=== PATIENT | female | born 1995 | race Caucasian/White ===

== ENCOUNTER 2017-05-18 02:22 | Day surgery (SDC) | payer BC, OTHER ==
--- NOTE | 2017-05-18 03:17 | PDOC ---
History of Present Illness - General Stated Complaint: ABDOMINAL PAIN Time Seen by Provider: 05/18/17 02:28 History Source: Patient Exam Limitations: No Limitations - History of Present Illness Travel History: No Initial Comments: 05/18/17 03:16 22-year-old female with no medical history presents to the emergency department with her mother complaining of epigastric/right upper quadrant abdominal discomfort. Pain is described as 8/10 dull nonradiating intermittent discomfort. The pain is exacerbated after eating and there are no alleviating factors. Patient states for the past 2 weeks, she is been experiencing right upper quadrant discomfort about 20 minutes after eating. This evening, patient states the pain has increased after having dinner at approximately 1930 hrs. Patient felt nauseous and had 2 bouts of vomiting, nonbloody/nonbilious 30 minutes ago. Patient denies fever, chills, neck pain/stiffness, chest pain, shortness of breath, flank pains, urinary symptoms. Timing/Duration: reports: intermittent Abdominal Pain Onset Location: reports: RUQ, epigastric Past History - Past Medical History Allergies/Adverse Reactions: Allergies Allergy/AdvReac Type Severity Reaction Status Date / Time abraham Allergy Mild Hives Verified 05/18/17 17:15 Home Medications: Ambulatory Orders Norethindrone AC-Eth Estradiol [Loestrin 21 1-20 Tablet] 1 each PO DAILY Review of Systems - Review of Systems Able to Perform ROS?: Yes Comments:: 05/18/17 03:15 CONSTITUTIONAL: Absent: fever, chills, diaphoresis, generalized weakness, malaise, loss of appetite HEENT: Absent: rhinorrhea, nasal congestion, throat pain, throat swelling, difficulty swallowing, mouth swelling, ear pain, eye pain, visual Changes CARDIOVASCULAR: Absent: chest pain, loss of consciousness, palpitations, irregular heart rate, peripheral edema RESPIRATORY: Absent: cough, shortness of breath, dyspnea with exertion, orthopnea, wheezing, stridor, hemoptysis GASTROINTESTINAL: +RUQ pain Absent: abdominal distension, nausea, vomiting, diarrhea, constipation, melena , hematochezia GENITOURINARY: Absent: dysuria, frequency, urgency, hesitancy, hematuria, flank pain, genital pain MUSCULOSKELETAL: Absent: myalgia, arthralgia, joint swelling SKIN: Absent: rash, itching, pallor HEMATOLOGIC/IMMUNOLOGIC: Absent: easy bleeding, easy bruising, lymphadenopathy, frequent infections ENDOCRINE: Absent: unexplained weight gain, unexplained weight loss, heat intolerance, cold intolerance Is the patient limited Setswana proficient: No *Physical Exam - Physical Exam Comments: 05/18/17 03:15 GENERAL: Well developed, well nourished. Awake and alert. No acute distress. HEENT: Normocephalic, atraumatic. PERRLA, EOMI. No conjunctival pallor. Sclera are non- icteric. Moist mucous membranes. Oropharynx is clear. NECK: Supple. Full ROM. No JVD. Carotid pulses 2+ and symmetric, without bruits. No thyromegaly. No lymphadenopathy. CARDIOVASCULAR: Regular rate and rhythm. No murmurs, rubs, or gallops. Distal pulses are 2+ and symmetric. PULMONARY: No evidence of respiratory distress. Lungs clear to auscultation bilaterally. No wheezing, rales or rhonchi. ABDOMINAL: +RUQ pain/Epigastric pain on palp Soft. Non-distended. No rebound or guarding. No organomegaly. Normoactive bowel sounds. MUSCULOSKELETAL Normal range of motion at all joints. No bony deformities or tenderness. No CVA tenderness. EXTREMITIES: No cyanosis. No clubbing. No edema. No calf tenderness. SKIN: Warm and dry. Normal capillary refill. No rashes. No jaundice. ED Treatment Course - LABORATORY CBC & Chemistry Diagram: 05/18/17 03:17 05/18/17 03:17 - RADIOLOGY Radiograph Interpretation: 05/18/17 05:29 Ct abd /pelvis w/iv contrast: Gallbladder distention and mild biliary duct dilation without gallbladder inflammation. Mild splenomegaly. Evaluated with US when warranted Progress Note - Progress Note Progress Note: [id number]: Sign out to MIRELLA Edmondson *DC/Admit/Observation/Transfer Diagnosis at time of Disposition: Abdominal pain Qualifiers: Abdominal location: right upper quadrant Qualified Code(s): R10.11 - Right upper quadrant pain - Discharge Dispostion Condition at time of disposition: Stable - Referrals - Patient Instructions - Post Discharge Activity
[2017-05-18 03:42] LABS: BASO % 0.4 % (0-2.0); EOS % 0.2 % (0-4.5); HEMATOCRIT 43.9 % (32.4-45.2); LYMPH % 6.5 % (8-40); MCH 30.2 pg (25.7-33.7); MCHC 34.2 g/dl (32.0-36.0); MEAN CELL VOLUME 88.4 fl (80-96); MEAN PLT VOLUME 8.6 fl (7.5-11.1); MONO % 2.5 % (3.8-10.2); NEUT % 90.4 % (42.8-82.8); PLATELET COUNT 261 K/MM3 (134-434); RBC 4.97 M/mm3 (3.60-5.2); RDW 12.9 % (11.6-15.6); WHITE BLOOD COUNT 15.1 K/mm3 (4.0-10.0)
[2017-05-18] MEDS: SODIUM CHLORIDE 1,000 ML IV SCH ×2 (03:42→16:28)
[2017-05-18] MEDS ORDERED: morphine CARPU-JECT 2 MG/1 ML DISP.SYRIN IVPUSH ONE ×2 (03:43→07:28)
[2017-05-18] MEDS ORDERED: FAMOTIDINE IV 20 MG/12 ML VIAL IVPB ONE (03:43)
[2017-05-18 03:44] LABS: URINE APPEARANCE CLOUDY; URINE BILIRUBIN NEGATIVE (NEGATIVE); URINE BLOOD NEGATIVE (NEGATIVE); URINE COLOR YELLOW; URINE GLUCOSE (UA) NEGATIVE (NEGATIVE); URINE KETONE TRACE (NEGATIVE); URINE LEUK ESTERASE TRACE (NEGATIVE); URINE NITRITE NEGATIVE (NEGATIVE); URINE PROTEIN NEGATIVE (NEGATIVE); URINE UROBILINOGEN NEGATIVE mg/dL (0.2-1.0)
[2017-05-18 03:56] LABS: EPI CELLS RARE /HPF (FEW); HCG,QUALITATIVE URINE NEGATIVE; URINE BACTERIA MODERATE /hpf (NONE SEEN); URINE MUCUS RARE
[2017-05-18] MEDS ORDERED: morphine CARPU-JECT 10 MG/1 ML DISP.SYRIN ONE (04:01)
[2017-05-18] MEDS ORDERED: FAMOTIDINE 20 MG/50 ML IVPB 20 MG/50 ML MG IVPB ONE (04:01)
[2017-05-18] MEDS ORDERED: ONDANSETRON 4 MG/2 ML VIAL IVPUSH ONE ×2 (04:05→07:35)
[2017-05-18] MEDS ORDERED: ONDANSETRON 4 MG/2 ML VIAL ONE (04:05)
[2017-05-18 04:12] LABS: ALBUMIN 4.3 g/dl (3.4-5.0); AMYLASE 58 U/L (25-115); ANION GAP 12 (8-16); BLOOD UREA NITROGEN 12 mg/dL (7-18); CALCIUM 9.9 mg/dL (8.5-10.1); CHLORIDE 99 mmol/L (98-107); CO2 25 mmol/L (21-32); CREATININE 0.9 mg/dL (0.55-1.02); GLUCOSE,RANDOM 116 mg/dL (74-106); LIPASE 104 U/L (73-393); SGPT/ALT 23 U/L (12-78); SODIUM 136 mmol/L (136-145); TOT PROT 7.2 g/dl (6.4-8.2)
[2017-05-18 04:13] LABS: ALK PHOS 50 U/L (45-117); POTASSIUM 4.5 mmol/L (3.5-5.1); SGOT/AST 19 U/L (15-37)
--- NOTE | 2017-05-18 07:27 | PDOC ---
*Physical Exam - Vital Signs Last Vital Signs Temp Pulse Resp BP Pulse Ox 98.0 F 68 20 122/68 99 05/18/17 03:19 05/18/17 06:56 05/18/17 06:56 05/18/17 06:56 05/18/17 06:56 ED Treatment Course - LABORATORY CBC & Chemistry Diagram: 05/18/17 03:17 05/18/17 03:17 - ADDITIONAL ORDERS Additional order review: Laboratory Results 05/18/17 05/18/17 03:17 03:17 Sodium 136 Potassium 4.5 Chloride 99 Carbon Dioxide 25 Anion Gap 12 BUN 12 D Creatinine 0.9 D Creat Clearance w eGFR > 60 Random Glucose 116 H D Calcium 9.9 Total Bilirubin 1.0 AST 19 D ALT 23 Alkaline Phosphatase 50 D Total Protein 7.2 Albumin 4.3 Total Amylase 58 Lipase 104 Urine Color Yellow Urine Appearance Cloudy Urine pH 6.0 Ur Specific [place] 1.023 Urine Protein Negative Urine Glucose (UA) Negative Urine Ketones Trace H Urine Blood Negative Urine Nitrite Negative Urine Bilirubin Negative Urine Urobilinogen Negative Urine WBC (Auto) 3 Urine RBC (Auto) 1 Ur Epithelial Cells Rare Urine Bacteria Moderate Urine Mucus Rare Urine HCG, Qual Negative 05/18/17 03:17 RBC 4.97 MCV 88.4 MCHC 34.2 RDW 12.9 D MPV 8.6 Neutrophils % 90.4 H Lymphocytes % 6.5 L Monocytes % 2.5 L Eosinophils % 0.2 Basophils % 0.4 - Medications Given in the ED: ED Medications Discontinued Medications Generic Name Dose Route Start Last Admin Trade Name Freq PRN Reason Stop Dose Admin Famotidine 20 mg in 12 mls @ 144 mls/hr 05/18/17 03:43 05/18/17 04:09 Pepcid 20 Mg/12 Ml Push IVPB 05/18/17 03:47 144 mls/hr ONCE ONE Administration Morphine Sulfate 2 mg 05/18/17 03:43 05/18/17 04:09 Morphine Injection - IVPUSH 05/18/17 03:44 2 mg ONCE ONE Administration Ondansetron HCl 4 mg 05/18/17 04:05 05/18/17 04:09 Zofran Injection IVPUSH 05/18/17 04:06 4 mg ONCE ONE Administration Medical Decision Making - Medical Decision Making 05/18/17 09:54 Sign out received from, 0700 hours. Patient is a 22-year-old female with no past medical history who presents with right upper quadrant pain. CT abdomen shows mildly distended gallbladder with mild wall thickening. Cannot rule out cholecystitis waiting for ultrasound read. WBCs elevated at 15. Pt. naueous at this time. Zofran ordered. PCP: Dr. Salazar [phone] Preferred surgeon: Dr. Fischer. 05/18/17 09:56 *DC/Admit/Observation/Transfer Diagnosis at time of Disposition: Abdominal pain Qualifiers: Abdominal location: right upper quadrant Qualified Code(s): R10.11 - Right upper quadrant pain - Discharge Dispostion Condition at time of disposition: Stable Admit: Yes - Referrals - Patient Instructions - Post Discharge Activity
[2017-05-18] MEDS ORDERED: LEVOFLOXACIN 500 MG IVPB 500 MG/100 ML BAG IVPB ONE ×2 (10:10→10:32)
[2017-05-18] MEDS ORDERED: LEVOFLOXACIN 750 MG IVPB 750 MG/150 ML BAG IVPB ONE (10:19)
--- NOTE | 2017-05-18 15:10 | PN ---
Progress Note (short form) - Note Progress Note: ID Consult dictated Acute cholecystitis Leukocytosis, possible biliary sepsis Await cultures GI/Surgical evaluations Empiric ceftriaxone/ flagyl
--- NOTE | 2017-05-18 15:44 | CONS ---
DATE OF CONSULTATION: DATE OF DICTATION: 05/18/2017 INFECTIOUS DISEASE CONSULTATION HISTORY OF PRESENT ILLNESS: The patient is a 22-year-old previously healthy female, evaluated for acute cholecystitis. The patient reports developing recurrent epigastric and right upper quadrant abdominal pain. She had had episodes in the past. However, last night, after eating a meal, she developed increased pain in the right upper quadrant, associated with nausea and vomiting. She denied any fever or chills. She presented to the emergency room early this morning, where a CAT scan revealed a distended gallbladder with mild biliary duct dilatation. No inflammation of the gallbladder of pancreas was noted. The common bile duct was not significantly dilated. An ultrasound showed a prominent mucosal fold at the gallbladder neck and cystic duct, consistent with spiral valves of Heister. The gallbladder was slightly distended, without wall thickening or intraluminal stones. No pericholecystic fluid was noted. Her laboratory data showed white count of 15,000. Blood cultures were obtained, and she was empirically treated with Levaquin. At the present time she has no complaints of abdominal pain. She is hungry. Denies recurrent nausea or vomiting. PAST MEDICAL HISTORY: Negative. ALLERGIES: No known allergies. SOCIAL HISTORY: Negative for tobacco, alcohol or illicit drugs. REVIEW OF SYSTEMS: Neurologic: No loss of consciousness, seizure activity, focal weakness. Cardiac: Negative for chest pain or palpitations. Respiratory: Negative for cough or sputum production. Gastrointestinal: As per HPI. Genitourinary: Negative for urinary tract infection. LABORATORY DATA: White count 15.1, hematocrit 43.9, platelet count 261. BUN 12, creatinine 0.9. Liver enzymes normal. Urinalysis: 3 white cells. Amylase 58, lipase 104. Blood cultures are pending. Urine test negative. PHYSICAL EXAMINATION: General: She is awake and alert. She is not acute toxic appearing. Vital Signs: Temperature 98.6, blood pressure 109/65, pulse 81 and regular, respirations 18 per minute. HEENT: Sclerae anicteric. Cardiac: Heart sounds S1, S2. Lungs: Clear. Abdomen: Slight right upper quadrant and epigastric tenderness to palpation. Negative Sorenson sign. Extremities: Negative for edema. IMPRESSION: 1. Probable acute cholecystitis. 2. Leukocytosis, rule out biliary sepsis. PLAN: Await culture results. Surgical and GI evaluations. Empiric antibiotic coverage for biliary tract pathogens with ceftriaxone 2 g IV pyelogram daily and Flagyl 500 mg IV piggyback every 8 hours. The patient is to undergo a HIDA scan. Case discussed with the patient's father. We will follow. Thank you for the kind referral. KILEY GABRIEL M.D. ANTHONY/[id number]
[2017-05-18] MEDS: METRONIDAZOLE 500 MG PREMIXED 500 MG/100 ML MG IVPB SCH ×2 (16:28→17:56)
[2017-05-18 17:14] VITALS: BMI 20.5
--- NOTE | 2017-05-18 17:27 | CON.GI ---
Consult Consult Specialty:: GI Referred by:: Dr Raghav Shaw - History of Present Illness Chief Complaint: RUQ pain History of Present Illness: 22 y/ Female was doing well util 3 weeks she developed mild ruq pain which became worse last evening. The pain was 10/10/ associated with nausea and vomiting. Since last night she could sleep because of the abdominal pain. Abdomnal ultrasound revealed a dilated Gallbladder with no stones associated with normal CBD. The HIDA scan requested revealed non-visualization of the gallbladder consistent with cholecystitis. This evening the ruq pain has subsided. - Past Medical History ...LMP: 04/21/17 ...: No - Alcohol/Substance Use Hx Alcohol Use: Yes (socially) - Smoking History Smoking history: Never smoked Have you smoked in the past 12 months: No Home Medications - Allergies Allergies/Adverse Reactions: Allergies Allergy/AdvReac Type Severity Reaction Status Date / Time abraham Allergy Mild Hives Verified 05/18/17 17:15 - Home Medications Home Medications: Ambulatory Orders Norethindrone AC-Eth Estradiol [Loestrin 21 1-20 Tablet] 1 each PO DAILY Review of Systems - Review of Systems Constitutional: denies: No Symptoms, Chills, Diaphoresis, Fever, Lethargy, Loss of Appetite, Malaise, Night Sweats, Unintentional Wgt. Loss, Weakness, Other Eyes: denies: No Symptoms, Blind Spots, Blurred Vision, Double Vision, Eye Pain , Floaters, Photophobia, Recent Change in Vision, Other HENT: denies: No Symptoms, Difficult Swallowing, Ear Discharge, Ear Pain, Epistaxis, Gingival Bleeding, Hearing Loss, Mouth Swelling, Nasal Congestion, Ocular Prosthesis, Throat Pain, Toothache, Ringing in Ears, Other Cardiovascular: denies: No Symptoms, Chest Pain, Edema, Palpitations, Shortness of Breath, Other Respiratory: denies: No Symptoms, Cough, Exercise Intolerance, Hemoptysis, Orthopnea, PND, Snoring, SOB, SOB on Exertion, Wheezing, Other Gastrointestinal: reports: Abdominal Pain (--ruq) Physical Exam-GI Vital Signs: Vital Signs Temperature 97.9 F 05/18/17 16:57 Pulse Rate 82 05/18/17 16:57 Respiratory Rate 18 05/18/17 16:57 Blood Pressure 102/70 05/18/17 16:57 O2 Sat by Pulse Oximetry (%) 99 05/18/17 16:57 Constitutional: Yes: Well Nourished Eyes: Yes: Conjunctiva Clear HENT: Yes: Atraumatic Neck: Yes: Trachea Midline Cardiovascular: Yes: Regular Rate and Rhythm Respiratory: Yes: CTA Bilaterally ...Palpate: Yes: Mass, Soft, Tenderness (--ruq tendernes). No: Firm/Rigid, Guarding, Hepatomegaly, Splenomegaly Labs: CBC, BMP 05/18/17 03:17 05/18/17 03:17 Hepatic Panel Total Bilirubin 1.0 mg/dL (0.2-1.0) 05/18/17 03:17 AST 19 U/L (15-37) D 05/18/17 03:17 ALT 23 U/L (12-78) 05/18/17 03:17 Alkaline Phosphatase 50 U/L (45-117) D 05/18/17 03:17 Albumin 4.3 g/dl (3.4-5.0) 05/18/17 03:17 Problem List - Problems (1) Acute cholecystitis Assessment/Plan: R> continue IV Antibiotics and IV hydration discussed case with Dr Shaw and Marck, will need cholecystectomy Code(s): K81.0 - ACUTE CHOLECYSTITIS
[2017-05-18] MEDS ORDERED: ONDANSETRON 4 MG/2 ML VIAL IVPB SCH (18:00)
[2017-05-18] MEDS ORDERED: METOCLOPRAMIDE HCL INJECTION 10 MG/2 ML VIAL IVPB SCH ×2 (18:00)
[2017-05-18] MEDS: CEFTRIAXONE IN IS-OSM DEXTROSE 2 GM/50 ML BAG IVPB SCH (18:07)
--- NOTE | 2017-05-18 18:16 | HP ---
Admitting History and Physical - Primary Care Physician PCP: Raghav Muniz D - Admission Chief Complaint: Abdominal pain History of Present Illness: 22 y/o who for the past couple of weeks has been getting upper abdominal usually after dinner, but last one week noted pain almost daily after dinner and would continue till she went to bed.Last night after dinner she developed pain and vomited about three times and then upper abdominal pain became very severe 10 and came to the ED . A [place] [id number]. US showed dilated GB a slight dilatation of intrahepatic ducts. She had a Hida scan this afternoon which did not show any obstruction.GB did not visualize Her LFTs have been normal. She was started on IV Levaquin , IV Famotidine and was given MS IV for pain control. At present she doesn't have any pain. 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[place]) Home Medications - Allergies Allergies/Adverse Reactions: Allergies Allergy/AdvReac Type Severity Reaction Status Date / Time abraham Allergy Mild Hives Verified 05/18/17 17:15 - Home Medications Home Medications: Ambulatory Orders Norethindrone AC-Eth Estradiol [Loestrin 21 1-20 Tablet] 1 each PO DAILY Review of Systems - Review of Systems Constitutional: reports: No Symptoms HENT: reports: No Symptoms Neck: reports: No Symptoms Cardiovascular: reports: No Symptoms Respiratory: reports: No Symptoms Gastrointestinal: reports: Abdominal Pain Genitourinary: reports: No Symptoms Breasts: reports: No Symptoms Reported Musculoskeletal: reports: No Symptoms Integumentary: reports: No Symptoms Neurological: reports: No Symptoms Endocrine: reports: No Symptoms Hematology/Lymphatic: reports: No Symptoms Psychiatric: reports: No Symptoms Physical Examination Vital Signs: Vital Signs Temperature 97.9 F 05/18/17 16:57 Pulse Rate 82 05/18/17 16:57 Respiratory Rate 18 05/18/17 16:57 Blood Pressure 102/70 12/28/17 16:57 O2 Sat by Pulse Oximetry (%) 99 05/18/17 16:57 Constitutional: Yes: Well Nourished, No Distress, Calm Eyes: Yes: Conjunctiva Clear, EOM Intact HENT: Yes: WNL Neck: Yes: Supple Cardiovascular: Yes: Regular Rate and Rhythm, S1, S2 Respiratory: Yes: WNL, CTA Bilaterally Gastrointestinal: Yes: Tenderness, Tenderness, Epigastrium, Other (severe tenderness in the RUQ, and epigastric region, no distention) Renal/: Yes: WNL Breast(s): Yes: WNL Musculoskeletal: Yes: WNL Extremities: Yes: WNL Edema: No Peripheral Pulses WNL: Yes Integumentary: Yes: WNL Neurological: Yes: Alert, Oriented ...Motor Strength: WNL Psychiatric: Yes: WNL Labs: CBC, BMP 05/18/17 03:17 05/18/17 03:17 Imaging - Results Cat Scan: Report Reviewed Ultrasound: Report Reviewed Other: Report Reviewed (Hida scan reviewed) Problem List - Problems (1) Acute cholecystitis Assessment/Plan: She is presently on IV Rocephin and IV Flagyl and continues to be very tender in the right upper quadrant. Surgical opinion from Code(s): K81.0 - ACUTE CHOLECYSTITIS Assessment/Plan Continue IV antibiotics as recommended by ,ID. Await 's surgical opinion.
[2017-05-18] MEDS: DEXTROSE 5%-0.45% SALINE 1,000 ML IV SCH (20:22)
[2017-05-18] MEDS: PANTOPRAZOLE SODIUM 40 MG VIAL IVPUSH SCH (20:24)
[2017-05-18] MEDS ORDERED: ACETAMINOPHEN 325 MG TABLET (FP) PO ONE (22:00)
[2017-05-19] MEDS: ONDANSETRON 4 MG/2 ML VIAL IVPUSH SCH ×6 (01:41→22:00)
[2017-05-19] MEDS: METRONIDAZOLE 500 MG PREMIXED 500 MG/100 ML MG IVPB SCH ×2 (01:41→10:24)
[2017-05-19] MEDS: METOCLOPRAMIDE HCL INJECTION 10 MG/2 ML VIAL IVPUSH SCH ×2 (01:45→10:28)
--- NOTE | 2017-05-19 08:45 | CONSULT ---
Consult Consult Specialty:: surgery - History of Present Illness History of Present Illness: 22 y/ Female was doing well util 3 weeks she developed mild ruq pain which became worse last evening. The pain was 10/10/ associated with nausea and vomiting. Since last night she could sleep because of the abdominal pain. Abdomnal ultrasound revealed a dilated Gallbladder with no stones associated with normal CBD. The HIDA scan requested revealed non-visualization of the gallbladder consistent with cholecystitis. This evening the ruq pain has subsided. - Past Medical History ...LMP: 04/21/17 ...: No - Alcohol/Substance Use Hx Alcohol Use: Yes (socially) History of Substance Use: reports: None - Smoking History Smoking history: Never smoked Have you smoked in the past 12 months: No Home Medications - Allergies Allergies/Adverse Reactions: Allergies Allergy/AdvReac Type Severity Reaction Status Date / Time abraham Allergy Mild Hives Verified 05/18/17 17:15 - Home Medications Home Medications: Ambulatory Orders Norethindrone AC-Eth Estradiol [Loestrin 21 1-20 Tablet] 1 each PO DAILY Physical Exam Vital Signs: Vital Signs Temperature 97.8 F 05/19/17 08:00 Pulse Rate 75 05/19/17 08:00 Respiratory Rate 18 05/19/17 08:00 Blood Pressure 123/75 05/19/17 08:00 O2 Sat by Pulse Oximetry (%) 99 05/18/17 21:00 Labs: CBC, BMP 05/18/17 03:17 05/18/17 03:17 Imaging - Results Cat Scan: Report Reviewed, Image Reviewed Ultrasound: Report Reviewed, Image Reviewed Other: Report Reviewed, Image Reviewed (acute cholecystitis) Assessment/Plan Acute Cholecystitis plan for OR today for Lap shahrzad
[2017-05-19 09:19] LABS: INR 1.21 (0.82-1.09); PROTHROMBIN TIME (PATIENT) 13.7 SEC (9.98-11.88)
[2017-05-19 09:34] LABS: ALBUMIN 3.4 g/dl (3.4-5.0)
[2017-05-19 09:39] LABS: BILIRUBIN,DIRECT 0.3 mg/dL (0.0-0.2); BILIRUBIN,TOTAL 1.1 mg/dL (0.2-1.0)
[2017-05-19 09:59] LABS: BASO % 0.5 % (0-2.0); EOS % 2.5 % (0-4.5); HEMATOCRIT 42.1 % (32.4-45.2); HEMOGLOBIN 14.4 GM/dL (10.7-15.3); MCH 30.3 pg (25.7-33.7); MCHC 34.3 g/dl (32.0-36.0); MEAN CELL VOLUME 88.3 fl (80-96); MEAN PLT VOLUME 8.7 fl (7.5-11.1); MONO % 7.5 % (3.8-10.2); NEUT % 64.5 % (42.8-82.8); PLATELET COUNT 205 K/MM3 (134-434); RBC 4.77 M/mm3 (3.60-5.2); RDW 12.6 % (11.6-15.6); WHITE BLOOD COUNT 6.1 K/mm3 (4.0-10.0)
[2017-05-19] MEDS ORDERED: PT OWN MED DRAWER 7, Y5N ONE (10:17)
[2017-05-19] MEDS: CEFTRIAXONE IN IS-OSM DEXTROSE 2 GM/50 ML BAG IVPB SCH (10:24)
[2017-05-19] MEDS: PANTOPRAZOLE SODIUM 40 MG VIAL IVPUSH SCH (10:24)
--- NOTE | 2017-05-19 11:39 | PN ---
Progress Note, Physician History of Present Illness: Awake, alert Ambulatory No c/o RUQ pain at present No N/V No fever/ chills Afebrile WBC now normal BC no growth - Current Medication List Current Medications: Active Medications CEFTRIAXONE IN IS-OSM DEXTROSE (Ceftriaxone 2 Gm-D5w Bag) 2 gm in 50 mls @ 100 mls/hr IVPB DAILY SIMIN Last Admin: 05/19/17 10:24 Dose: 100 mls/hr Metronidazole (Flagyl 500mg Premixed Ivpb -) 500 mg in 100 mls @ 100 mls/hr IVPB Q8H-IV SIMIN Last Admin: 05/19/17 10:24 Dose: 100 mls/hr Dextrose/Sodium Chloride (D5-1/2ns -) 1,000 mls @ 100 mls/hr IV ASDIR SIMIN Last Admin: 05/18/17 20:22 Dose: 100 mls/hr Metoclopramide HCl (Reglan Injection -) 10 mg IVPUSH Q8H-IV SIMIN Last Admin: 05/19/17 10:28 Dose: Not Given Ondansetron HCl (Zofran Injection) 4 mg IVPUSH Q4H-IV SIMIN Last Admin: 05/19/17 10:28 Dose: Not Given Pantoprazole Sodium (Protonix Iv) 40 mg IVPUSH DAILY SIMIN Last Admin: 05/19/17 10:24 Dose: 40 mg - Objective Vital Signs: Vital Signs Temperature 97.8 F 05/19/17 08:00 Pulse Rate 75 05/19/17 08:00 Respiratory Rate 18 05/19/17 08:00 Blood Pressure 123/75 05/19/17 08:00 O2 Sat by Pulse Oximetry (%) 99 05/18/17 21:00 Constitutional: Yes: No Distress Cardiovascular: Yes: Regular Rate and Rhythm, S1, S2 Respiratory: Yes: CTA Bilaterally Gastrointestinal: Yes: Normal Bowel Sounds, Soft, Tenderness, Other (mild RUQ tenderness to palp) Edema: No Labs: CBC, BMP 05/19/17 09:00 05/18/17 03:17 INR, PTT INR 1.21 (0.82-1.09) H 05/19/17 08:55 Assessment/Plan Acute cholecystitis Leukocytosis- resolved For lap shahrzad today D/C antibiotics post-op
[2017-05-19] MEDS ORDERED: fentaNYL CITRATE 250 MCG/5 ML VIAL ONE (13:15)
[2017-05-19] MEDS ORDERED: MIDAZOLAM HCL 2 MG/2 ML SINGLE DOSE VIAL ONE (13:16)
[2017-05-19] MEDS ORDERED: ROCURONIUM BROMIDE 50 MG/5 ML VIAL ONE ×2 (13:16)
[2017-05-19] MEDS ORDERED: PROPOFOL 20 ML ONE (13:16)
[2017-05-19] MEDS ORDERED: ceFAZolin SODIUM 1 GM VIAL ONE (13:18)
[2017-05-19] MEDS ORDERED: DEXAMETHASONE SOD PHOSPHATE 4 MG/1 ML VIAL ONE (13:18)
[2017-05-19] MEDS ORDERED: LIDOCAINE HCL/PF 2% SDV 5ML VIAL ONE (13:18)
[2017-05-19] MEDS ORDERED: KETOROLAC TROMETHAMINE 30 MG/1 ML VIAL ONE (13:18)
[2017-05-19] MEDS ORDERED: BUPIVACAINE HCL/PF 0.5% (5MG/ML) 10 ML VIAL ONE (13:52)
[2017-05-19] MEDS ORDERED: ceFAZolin SODIUM 1 GM VIAL IVPB ONE ×2 (14:20)
[2017-05-19] MEDS ORDERED: NEOSTIGMINE METHYLSULFATE 0.5 MG/ML - 10 ML MDV ONE (14:34)
[2017-05-19] MEDS ORDERED: GLYCOPYRROLATE 0.2 MG/1 ML VIAL ONE (14:34)
[2017-05-19] MEDS ORDERED: BUPIVACAINE HCL/PF 0.5% (5MG/ML) 10 ML VIAL IJ ONE ×4 (14:43→15:27)
--- NOTE | 2017-05-19 15:50 | OP ---
Operative Note - Note: Operative Date: 05/19/17 Pre-Operative Diagnosis: acute cholecystitis Operation: laparoscopic cholecystectomy Findings: acute cholecystitis Post-Operative Diagnosis: Same as Pre-op Surgeon: Stevenson Fischer Anesthesia: General Specimens Removed: gall bladder Estimated Blood Loss (mls): 25 Fluid Volume Replaced (mls): 1,000 Operative Report Dictated: Yes
[2017-05-19] MEDS ORDERED: oxyCODONE HCL 5 MG TABLET PO PRN (16:12)
[2017-05-19] MEDS ORDERED: LACTATED RINGERS SOLUTION 1,000 ML IV SCH (16:15)
[2017-05-19] MEDS ORDERED: METOCLOPRAMIDE HCL INJECTION 10 MG/2 ML VIAL IVPUSH PRN (16:16)
--- NOTE | 2017-05-19 16:26 | SURG ---
Surgery Retail Operations Specialist Note Retail Operations Specialist: Keila Aguilera PA-C Date of Service: 05/19/17 Diagnosis: acute cholecystitis Procedure: laparoscopic cholecystectomy I was present for the entirety of the operative procedure. For further detail, please refer to operative report. Visit type - Case Type Case Type: ED Admission - Emergency Emergency Visit: Yes ED Registration Date: 05/18/17 Care time: The patient presented to the Emergency Department on the above date and was hospitalized for further evaluation of their emergent condition. - New patient This patient is new to me today: Yes Date on this admission: 05/19/17
[2017-05-19] MEDS: DEXTROSE 5%-0.45% SALINE 1,000 ML IV SCH ×2 (16:33→17:32)
--- NOTE | 2017-05-19 16:53 | OP ---
DATE OF OPERATION: 05/19/2017 PREOPERATIVE DIAGNOSIS: Acute cholecystitis. POSTOPERATIVE DIAGNOSIS: Acute cholecystitis. PROCEDURE: Laparoscopic cholecystectomy. SURGEON: Stevenson Garg M.D. PILOT SUBMERSIBLE: Matheus Paz COMPLICATIONS: None. BLEEDING: Minimal. SPECIMEN: Gallbladder. DISPOSITION: Patient tolerated procedure well. INDICATION: This is a 22-year-old female who presents with 3-week history of right upper quadrant pain with acute exacerbation over the last 48 hours, presented to the emergency room and underwent an evaluation which revealed an elevated white count, and an ultrasound showed distended gallbladder, and HIDA scan showed nonvisualization of the gallbladder. She was then taken to the operating room for a laparoscopic cholecystectomy. Risks and benefits discussed extensively with patient and family. DESCRIPTION OF PROCEDURE: In the operating room, she was placed in the supine position. After induction of sterile anesthesia, was prepared and draped in the usual sterile fashion. A standard timeout was observed, and then the procedure was begun. We made a 1.5-cm periumbilical incision was which carried through subcutaneous tissue in standard fashion. A standard Matos approach was used to enter peritoneal cavity. Insufflation of pressure to 15 mmHg was established and then three 5-mm ports were introduced: 1 in the epigastrium, 2 in the right upper quadrant. The patient was then positioned in the reverse Trendelenburg position. The gallbladder was visualized and appeared to be edematous. It was retracted superiorly and laterally. Blunt dissection was performed in the hilar region in order to expose the cystic duct and cystic artery. Care was taken to expose the cystic duct all the way to its origin at the level of the common bile duct. The critical view of safety was clearly established with exposure of the cystic duct and the common bile duct were beyond the junction of the cystic duct. The cystic artery was clearly visualized in the triangle of Calot. Upon dissecting the cystic artery, it was proximally and distally double clipped to the Endoclips and divided with Endoshears. The cystic duct was similarly doubly ligated with Endoclips and divided with Endoshears. Then the gallbladder was dissected off the liver bed with hook dissection using cautery. There were no perforations of the gallbladder. There was minimal bleeding from the gallbladder fossa. The gallbladder final dissection was placed in an Endocatch bag. The liver bed was examined for bleeding and final check for hemostasis was achieved with the occasional use of cautery. The gallbladder was placed in an Endocatch bag. The right upper quadrant was irrigated, . The gallbladder was removed through the umbilical port. The ports were removed under direct vision. The fascia at the umbilical port was then closed using 0 Vicryl sutures in interrupted fashion. The skin was closed with 4-0 Monocryl. At all port sites, Dermabond was applied and the patient then returned to the recovery room awake, alert, in stable condition. She tolerated the procedure well. STEVENSON GARG M.D. [id number]
[2017-05-19] MEDS ORDERED: KETOROLAC TROMETHAMINE 30 MG/1 ML VIAL IVPUSH PRN (17:27)
[2017-05-19] MEDS: ACETAMINOPHEN 325 MG TABLET (FP) PO SCH ×2 (17:40→18:34)
[2017-05-19] MEDS: oxyCODONE HCL 5 MG TABLET PO PRN (20:30)
--- NOTE | 2017-05-19 22:20 | PN ---
Progress Note, Physician History of Present Illness: Underwent cholecystectomy this afternoon and c/o some pain in abdomen. - Current Medication List Current Medications: Active Medications Acetaminophen (Tylenol -) 650 mg PO Q6H [facility] Last Admin: 05/19/17 18:34 Dose: 650 mg Dextrose/Sodium Chloride (D5-1/2ns -) 1,000 mls @ 100 mls/hr IV ASDIR [facility] Last Admin: 05/19/17 17:32 Dose: 100 mls/hr Ketorolac Tromethamine (Toradol Injection -) 30 mg IVPUSH Q8H-IV PRN PRN Reason: PAIN Stop: 05/24/17 17:26 Last Admin: 05/19/17 17:32 Dose: 30 mg Metoclopramide HCl (Reglan Injection -) 10 mg IVPUSH Q8H-IV PRN PRN Reason: NAUSEA Non-Formulary Medication (Norethindrone Ac-Eth Estradiol [Loestrin 21 1-20 Tablet]) 1 each PO DAILY [facility] Ondansetron HCl (Zofran Injection) 4 mg IVPUSH Q4H-IV [facility] Last Admin: 05/19/17 22:00 Dose: 4 mg Oxycodone HCl (Roxicodone -) 5 mg PO Q6H PRN PRN Reason: PAIN LEVEL 1-5 Last Admin: 05/19/17 20:30 Dose: 5 mg Oxycodone HCl (Roxicodone -) 10 mg PO Q6H PRN PRN Reason: PAIN LEVEL 6-10 Pantoprazole Sodium (Protonix Iv) 40 mg IVPUSH DAILY [facility] - Objective Vital Signs: Vital Signs Temperature 98.0 F 05/19/17 18:55 Pulse Rate 80 05/19/17 18:55 Respiratory Rate 20 05/19/17 18:55 Blood Pressure 120/78 05/19/17 18:55 O2 Sat by Pulse Oximetry (%) 97 05/19/17 17:20 Constitutional: Yes: Calm Eyes: Yes: WNL HENT: Yes: WNL Neck: Yes: Supple Cardiovascular: Yes: Regular Rate and Rhythm, S1, S2 Respiratory: Yes: Regular, CTA Bilaterally Gastrointestinal: Yes: Other (no abdominal distention. some tendernes RUQ) Genitourinary: Yes: WNL Musculoskeletal: Yes: WNL Extremities: Yes: WNL Edema: No Peripheral Pulses WNL: Yes Integumentary: Yes: WNL Wound/Incision: Yes: Clean/Dry Neurological: Yes: Alert, Oriented ...Motor Strength: WNL Psychiatric: Yes: Alert, Oriented Labs: CBC, BMP 05/19/17 09:00 05/18/17 03:17 INR, PTT INR 1.21 (0.82-1.09) H 05/19/17 08:55 Problem List - Problems (1) Acute cholecystitis Assessment/Plan: Underwent cholecystectomy today and tolerated well Code(s): K81.0 - ACUTE CHOLECYSTITIS Assessment/Plan Plan to discharge in AM if stable
[2017-05-20] MEDS: ACETAMINOPHEN 325 MG TABLET (FP) PO SCH ×2 (00:05→06:13)
[2017-05-20] MEDS: ONDANSETRON 4 MG/2 ML VIAL IVPUSH SCH ×2 (02:00→06:13)
[2017-05-20] MEDS: DEXTROSE 5%-0.45% SALINE 1,000 ML IV SCH (04:30)
[2017-05-20] MEDS: oxyCODONE HCL 5 MG TABLET PO PRN (06:13)
[2017-05-20] MEDS ORDERED: PT OWN MED DRAWER 7, Y5N ONE (07:02)
[2017-05-20 08:27] VITALS: BP 125/80; PULSE 86; TEMP 99.6
[2017-05-20 08:45] LABS: BASO % 0.1 % (0-2.0); EOS % 0.1 % (0-4.5); HEMATOCRIT 40.8 % (32.4-45.2); LYMPH % 8.4 % (8-40); MCH 30.1 pg (25.7-33.7); MCHC 34.4 g/dl (32.0-36.0); MEAN CELL VOLUME 87.5 fl (80-96); MONO % 6.5 % (3.8-10.2); NEUT % 84.9 % (42.8-82.8); PLATELET COUNT 237 K/MM3 (134-434); RBC 4.67 M/mm3 (3.60-5.2); RDW 12.7 % (11.6-15.6); WHITE BLOOD COUNT 12.1 K/mm3 (4.0-10.0)
[2017-05-20 08:57] LABS: ALBUMIN 3.2 g/dl (3.4-5.0); BILIRUBIN,DIRECT 0.3 mg/dL (0.0-0.2)
[2017-05-20 09:00] LABS: TOT PROT 5.6 g/dl (6.4-8.2)
[2017-05-20] MEDS ORDERED: NORETHINDRONE AC ETH ESTRADIOL PO SCH ×2 (10:00)
[2017-05-20] MEDS ORDERED: PANTOPRAZOLE SODIUM 40 MG VIAL IVPUSH SCH (10:00)
--- NOTE | 2017-05-20 10:59 | PN ---
Progress Note, Physician History of Present Illness: s/p trevon shahrzad feeling well tolerating diet - Current Medication List Current Medications: Active Medications Acetaminophen (Tylenol -) 650 mg PO Q6H [facility] Last Admin: 05/20/17 06:13 Dose: 650 mg Dextrose/Sodium Chloride (D5-1/2ns -) 1,000 mls @ 100 mls/hr IV ASDIR [facility] Last Admin: 05/20/17 04:30 Dose: 100 mls/hr Ketorolac Tromethamine (Toradol Injection -) 30 mg IVPUSH Q8H-IV PRN PRN Reason: PAIN Stop: 05/24/17 17:26 Last Admin: 05/19/17 17:32 Dose: 30 mg Metoclopramide HCl (Reglan Injection -) 10 mg IVPUSH Q8H-IV PRN PRN Reason: NAUSEA Non-Formulary Medication (Norethindrone Ac-Eth Estradiol [Loestrin 21 1-20 Tablet]) 1 each PO DAILY [facility] Ondansetron HCl (Zofran Injection) 4 mg IVPUSH Q4H-IV [facility] Last Admin: 05/20/17 06:13 Dose: 4 mg Oxycodone HCl (Roxicodone -) 5 mg PO Q6H PRN PRN Reason: PAIN LEVEL 1-5 Last Admin: 05/20/17 06:13 Dose: 5 mg Oxycodone HCl (Roxicodone -) 10 mg PO Q6H PRN PRN Reason: PAIN LEVEL 6-10 Pantoprazole Sodium (Protonix Iv) 40 mg IVPUSH DAILY [facility] Last Admin: 05/20/17 09:28 Dose: 40 mg - Objective Vital Signs: Vital Signs Temperature 99.6 F 05/20/17 08:27 Pulse Rate 86 05/20/17 08:27 Respiratory Rate 16 05/20/17 08:27 Blood Pressure 125/80 05/20/17 08:27 O2 Sat by Pulse Oximetry (%) 98 05/20/17 08:38 Gastrointestinal: Yes: Other (incision clean and dry) Labs: CBC, BMP 05/20/17 07:45 05/18/17 03:17 INR, PTT INR 1.21 (0.82-1.09) H 05/19/17 08:55
--- NOTE | 2017-05-24 11:22 | PATH ---
Surgical Pathology Report Patient Name: BLU SAMUELS [facility]. Rec. #: [id number] /Age/Gender: 1995 (Age: 22) / F Account: [id number] Location: AMBULATORY SURG Taken: 05/19/2017 Received: 05/23/2017 Reported: 05/24/2017 Physicians: Stevenson Fischer M.D. Specimen(s) Received GALLBLADDER Clinical History Acute cholecystitis Final Diagnosis GALLBLADDER, LAPAROSCOPIC CHOLECYSTECTOMY: ACUTE AND CHRONIC CHOLECYSTITIS WITH CHOLELITHIASIS. Electronically Signed Sarah Garay M.D. Gross Description Received in formalin, labeled "gallbladder," is a 8.0 x 2.6 x 2.6 cm. gallbladder with a 0.2 cm. in length portion of cystic duct attached. The outer surface is monsalve-lyons and varies from smooth to shaggy. The lumen contains green, tenacious bile as well as a single 0.3 cm in diameter monsalve, spherical cholelith. The mucosa is green and velvety with gold cholesterol stippling. The wall of the gallbladder averages 0.1 cm. in thickness. Iron Assorter sections are submitted in one cassette. 05/23/201705/23/2017
== END 2017-05-20 13:42 | disposition home or self-care (01) ==
LOC: JER 02:22 → UNDOADMOB 10:59 → JERBED 10:59 → J6S 15:54 → JERBED 15:54 → OBSVTOIN 18:06 → INTOOBSV 18:06 → JASUSAT 05-19 16:14 → J6S 05-19 16:45 → JASUSAT 05-20 13:42
PROVIDERS: ATTEND Physician Assistant Surgical
PROC: 0FT44ZZ Resection of Gallbladder, Percutaneous Endoscopic Approach (ICD-10-PCS; principal; 2017-05-19 13:30)
DX: K81.0 Acute cholecystitis (principal)
CPT/HCPCS: 36415; 74177-TC; 76705-TC; 78227-TC; 80053; 80076; 81003; 81015; 82150; 83690; 84703; 85025; 85610; 86850; 86900; 86901; 87040; 88304-TC; 94760; 99283-25; A9537

== ENCOUNTER 2022-03-16 22:11 | Emergency (ER) | payer OTHER ==
[2022-03-16 22:20] VITALS: BP 133/86; PULSE 84; RESP 16; TEMP 99.3; BMI 23.1
== END 2022-03-16 23:09 | disposition home or self-care (01) ==
LOC: FER 22:11
DX: R19.7 Diarrhea, unspecified (principal)
CPT/HCPCS: 87045; 87046; 99282-25

== ENCOUNTER 2023-08-31 20:45 | Emergency (ER) | payer OTHER ==
[2023-08-31 21:09] VITALS: BP 122/74; PULSE 85; RESP 15; TEMP 99; BMI 22.6
== END 2023-08-31 21:45 | disposition home or self-care (01) ==
LOC: FER 20:45
PROC: 09C1XZZ Extirpation of Matter from Left External Ear, External Approach (ICD-10-PCS; principal; 2023-08-31)
DX: T16.2XXA Foreign body in left ear, initial encounter (principal)
CPT/HCPCS: 99283-25